=== PATIENT | male | born 1985 | race Two or more races ===

== ENCOUNTER 2018-07-17 05:28 | Emergency (ER) | payer SELFPAY ==
[2018-07-17 05:32] VITALS: BMI 29.0
[2018-07-17 05:35] VITALS: RESP 18; TEMP 98
--- NOTE | 2018-07-17 06:08 | ED PDOC ---
HPI: Psych/Substance Abuse Time Seen by Provider: 07/17/18 05:44 Chief Complaint (Nursing): Alcohol Ingestion Chief Complaint (Provider): Alcohol Intoxication ED Caveat: Intoxicated History Per: Patient, EMS History/Exam Limitations: intoxication Onset/Duration Of Symptoms: Mins Current Symptoms Are (Timing): Still Present Modifying Factor(s): Alcohol Additional Complaint(s): 32 year old male presents to the ED via EMS for public alcohol intoxication. Patient admits to drinking but denies any medical complaints. PMD: none provided Past Medical History Reviewed: Historical Data, Nursing Documentation, Vital Signs Vital Signs: Last Vital Signs Temp 98.0 F 07/17/18 05:33 Pulse 90 07/17/18 05:33 Resp 18 07/17/18 05:33 BP 153/104 H 07/17/18 05:33 Pulse Ox 100 07/17/18 05:33 - Medical History PMH: No Chronic Diseases - Surgical History Surgical History: No Surg Hx - Family History Family History: States: Unknown Family Hx - Allergies Allergies/Adverse Reactions: Allergies Allergy/AdvReac Type Severity Reaction Status Date / Time No Known Allergies Allergy Verified 07/17/18 05:32 Review of Systems ROS Statement: Except As Marked, All Systems Reviewed And Found Negative Physical Exam - Reviewed Nursing Documentation Reviewed: Yes Vital Signs Reviewed: Yes - Physical Exam Appears: Positive for: Non-toxic, No Acute Distress Head Exam: Positive for: ATRAUMATIC, NORMOCEPHALIC Skin: Positive for: Normal Color, Warm, Dry Eye Exam: Positive for: Normal appearance ENT: Positive for: Normal ENT Inspection Neck: Positive for: Normal, Painless ROM Cardiovascular/Chest: Positive for: Regular Rate, Rhythm. Negative for: Murmur Respiratory: Positive for: Normal Breath Sounds. Negative for: Wheezing, Respiratory Distress Gastrointestinal/Abdominal: Positive for: Normal Exam, Soft. Negative for: Tenderness Extremity: Positive for: Normal ROM Neurologic/Psych: Positive for: Alert, Oriented, Gait (unsteady), Other ( Slurred speech). Negative for: Motor/Sensory Deficits - ECG O2 Sat by Pulse Oximetry: 100 (RA) Pulse Ox Interpretation: Normal Medical Decision Making Medical Decision Making: Initial Impression: alcohol intoxication Initial Plan: --Monitor for clinical sobriety Scribe Attestation: Documented by Jose Teixeira acting as a scribe for Shawna Fields MD. Provider Scribe Attestation: All medical record entries made by the Scribe were at my direction and personally dictated by me. I have reviewed the chart and agree that the record accurately reflects my personal performance of the history, physical exam, medical decision making, and the department course for this patient. I have also personally directed, reviewed, and agree with the discharge instructions and disposition. Disposition - Clinical Impression Clinical Impression: Alcohol abuse - Patient ED Disposition Is Patient to be Admitted: Transfer of Care - Disposition Referrals: [facility] [Outside] - 07/18/18 Disposition: Transfer of Care Disposition Time: 07:00 Condition: STABLE Additional Instructions: Return if not better in 3 days. Instructions: Alcohol Abuse and Alcoholism (DC)
--- NOTE | 2018-07-17 11:21 | ED PDOC ---
- ECG O2 Sat by Pulse Oximetry: 100 (RA) Pulse Ox Interpretation: Normal - Progress ED Course And Treament: 700: Stable. Took over care from Dr. Fields. Fu on sobriety. 1100: Stable. Tolerated PO. Fu with pcp. AAOx3. Ambulated with no issues. Clinical sobriety reached. Disposition - Clinical Impression Clinical Impression: Alcohol abuse - POA Present On Arrival: None - Disposition Referrals: [facility] [Outside] - 07/18/18 Disposition: Routine/Home Disposition Time: 11:27 Condition: STABLE Additional Instructions: Return if not better in 3 days. Instructions: Alcohol Abuse and Alcoholism (DC)
[2018-07-17 11:59] VITALS: BP 114/62; PULSE 78
[2018-07-18 02:31] VITALS: O2SAT 100
== END 2018-07-17 12:00 | disposition home or self-care (01) ==
LOC: H.ER 05:28
DX: F10.129 Alcohol abuse with intoxication, unspecified (principal)